=== PATIENT | female | born 1970 | race Caucasian/White ===

== ENCOUNTER 2018-12-04 09:15 | Emergency (ER) | payer MEDICAID ==
[~2018-12-04] VITALS: Ht 154.9 cm; Wt 65.3 kg
[2018-12-04 09:18] VITALS: BP 147/84
--- NOTE | 2018-12-04 09:28 | NUR ---
PATIENT IN BATHROOM TO PROVIDE URINE SAMPLE.
--- NOTE | 2018-12-04 09:35 | NUR ---
C/O DIFFUSED BURNING ABD PAIN 10/07 X5 DAYS ASSOCIATED W/ N/V/D. NOT SURE IF ANY BLOOD IN DIARRHEA. HAS BEEN HAVING DIARRHEA THROUGHOUT THE NIGHT. VOMITTED 2X. NO FEVER. NORMOACTIVE BS. DIFFUSE TENDERNESS TO PALPATION. STATES TAKING OMEPRAZOLE TO NO RELIEF. HX: GERD, GASTRITIS RX: OMEPRAZOLE
--- NOTE | 2018-12-04 10:25 | NUR ---
DR MEHTA AT BEDSIDE
[2018-12-04] MEDS ORDERED: ONDANSETRON 4 MG/2 ML VIAL IM ONE (10:40)
[2018-12-04] MEDS ORDERED: DICYCLOMINE HCL LIQUID 10 MG/5 ML UDC PO ONE (11:10)
[2018-12-04] MEDS ORDERED: LIDOCAINE VISCOUS 2% 20 ML UDC PO ONE (11:10)
[2018-12-04] MEDS ORDERED: PANTOPRAZOLE 40 MG TABEC PO ONE (11:10)
[2018-12-04] MEDS ORDERED: ALUMINUM HYD/MAG/SIMETHICONE 30 ML UDC PO ONE (11:10)
[2018-12-04 12:40] VITALS: BP 136/77
--- NOTE | 2018-12-04 12:40 | NUR ---
Patient discharged with v/s stable. Written and verbal after care instructions given and explained. Patient alert, oriented and verbalized understanding of instructions. Ambulatory with steady gait. All questions addressed prior to discharge. ID band removed. Patient advised to follow up with PMD. Rx of MAALOX AND PROTONIX given. Patient educated on indication of medication including possible reaction and side effects. Opportunity to ask questions provided and answered. SYL BARILLAS TRANSLATED TO MALTESE PT GIVEN EXCUSE FOR WORK
== END 2018-12-04 12:40 | disposition home or self-care (01) ==
LOC: MED 09:15
DX: K29.70 Gastritis, unspecified, without bleeding (principal); R03.0 Elevated blood-pressure reading, without diagnosis of hypertension; K21.9 Gastro-esophageal reflux disease without esophagitis; Z90.49 Acquired absence of other specified parts of digestive tract
CPT/HCPCS: 81025; 96372; 99284; J2405

== ENCOUNTER 2019-07-26 14:54 | Emergency (ER) | payer SELFPAY ==
[~2019-07-26] VITALS: Ht 160 cm; Wt 70.8 kg
[2019-07-26 14:56] VITALS: BP 154/84
--- NOTE | 2019-07-26 15:00 | NUR ---
pt ambulated to chair c. steady gait.
--- NOTE | 2019-07-26 15:18 | NUR ---
49 Y/F PRESENTS TO ED FOR R HAND PAIN/ SWELLING AND R KNEE PAIN/ SWELLING. PT REPORTS PAIN AFTER REPETITIVE MOTIION AT WORK. PAIN HAS BEEN WORSE X 1 WEEK. PT REPROTS 9/10 THROBBING PAIN AND SWELLING. RADIAL PULSES 2+, SWELLING AND LIMITED FLEXION OF FINGERS. R KNEE SWELLING NOTED. LIMITED FLEXION AND EXTENSION. PT REPORTS TAKING TYLENOL AND MOTRIN AND HOME WITH SLIGHT RELIEF. PT DENIES ANY PHYSICAL INJURY. SKIN INTACT, NO BRUISING NOTED. [facility]
--- NOTE | 2019-07-26 15:18 | NUR ---
SHELLEY BACK CHAIRSIDE.
[2019-07-26] MEDS ORDERED: KETOROLAC 30 MG/ML VIAL IM ONE (15:25)
--- NOTE | 2019-07-26 15:43 | NUR ---
PT WHEELED TO XR
--- NOTE | 2019-07-26 16:40 | NUR ---
PA RE-EVALUATING PT CHAIRSIDE.
[2019-07-26 17:00] VITALS: BP 154/84
--- NOTE | 2019-07-26 17:00 | NUR ---
Patient discharged with v/s stable. Written and verbal after care instructions given and explained. Patient alert, oriented and verbalized understanding of instructions. Ambulatory with steady gait. All questions addressed prior to discharge. ID band removed. Patient advised to follow up with PMD. Rx of BOLTAREN AND IBUPROFEN given. Patient educated on indication of medication including possible reaction and side effects. Opportunity to ask questions provided and answered.
== END 2019-07-26 17:00 | disposition home or self-care (01) ==
LOC: MED 14:54
DX: S83.8X1A Sprain of other specified parts of right knee, initial encounter (principal); M79.641 Pain in right hand; W08.XXXA Fall from other furniture, initial encounter; Y93.89 Activity, other specified; Y92.89 Other specified places as the place of occurrence of the external cause; Y99.8 Other external cause status
CPT/HCPCS: 73130; 73560; 96372; 99284; J1885

== ENCOUNTER 2020-06-05 12:31 | Emergency (ER) | payer OTHER ==
[~2020-06-05] VITALS: Ht 157.5 cm; Wt 74.8 kg
[2020-06-05 12:35] VITALS: BP 143/87
[2020-06-05] MEDS ORDERED: ASPIRIN 81 MG TAB.CHEW PO ONE ×2 (13:00→14:45)
[2020-06-05] MEDS ORDERED: NACL 0.9% 1,000 ML IV ONE (13:15)
[2020-06-05] MEDS ORDERED: KETOROLAC 15 MG/ML VIAL IVP ONE (13:15)
[2020-06-05] MEDS ORDERED: METOCLOPRAMIDE 10 MG/2 ML INJ VIAL IVP ONE (13:15)
[2020-06-05 13:28] LABS: BASOPHILS % (AUTO) 0.2 % (0.0-2.0); EOSINOPHILS # (AUTO) 0.1 K/uL (0-0.4); EOSINOPHILS % (AUTO) 1.4 % (0.0-4.0); HEMATOCRIT 39.2 % (36-48); HEMOGLOBIN 13.3 g/dL (12.0-16.0); LYMPHOCYTES # (AUTO) 3.3 K/uL (2.5-16.5); LYMPHOCYTES % (AUTO) 42.7 % (20.5-51.1); MEAN CORPUSCULAR HEMOGLOBIN 31 pg (27-31); MEAN CORPUSCULAR HGB CONC 34 g/dL (33-37); MEAN CORPUSCULAR VOLUME 91.6 fL (80-94); MONOCYTES # (AUTO) 0.4 K/uL (0.8-1.0); MONOCYTES % (AUTO) 5.6 % (1.7-9.3); NEUTROPHILS # (AUTO) 3.8 K/uL (1.8-7.7); NEUTROPHILS % (AUTO) 50.1 % (42.2-75.2); PLATELET COUNT (AUTO) 454 K/uL (140-450); RED BLOOD CELL COUNT(AUTO) 4.28 MIL/uL (4.20-5.40); RED CELL DISTRIBUTION WIDTH 14.1 % (11.6-13.7); WHITE BLOOD COUNT (AUTO) 7.6 K/uL (4.8-10.8)
[2020-06-05 13:41] LABS: ANION GAP 15.2 (8-16); CARBON DIOXIDE 25.1 mmol/L (21-32); CREATININE 0.7 mg/dL (0.6-1.3); POTASSIUM 4.3 mmol/L (3.5-5.1)
[2020-06-05] MEDS ORDERED: NITROGLYCERIN 0.4 MG TAB SL ONE (14:45)
[2020-06-05 15:30] VITALS: BP 143/87
== END 2020-06-05 15:30 | disposition home or self-care (01) ==
LOC: MED 12:31
DX: R07.89 Other chest pain (principal); G43.809 Other migraine, not intractable, without status migrainosus; I10 Essential (primary) hypertension
CPT/HCPCS: 36415; 70450; 71045; 80048; 81025; 83880; 84484; 85025; 96361; 96374; 96375; 99285; J1885; J2765; J7030; 93005

== ENCOUNTER 2021-05-10 00:43 | Emergency (ER) | payer SELFPAY ==
[~2021-05-10] VITALS: Ht 162.6 cm; Wt 66.7 kg
[2021-05-10 00:55] VITALS: BP 121/76
--- NOTE | 2021-05-10 01:05 | NUR ---
PT PLACED IN A WHILE BED 6 OPENS UP. PT IS SITTING IN FRONT OF TRIAGE WHERE I CAN SEE HER.
[2021-05-10 01:35] LABS: EOSINOPHILS # (AUTO) 0.2 K/uL (0-0.4); NEUTROPHILS # (AUTO) 1.9 K/uL (1.8-7.7); NEUTROPHILS % (AUTO) 32.1 % (42.2-75.2); WHITE BLOOD COUNT (AUTO) 5.8 K/uL (4.8-10.8)
[2021-05-10 01:37] LABS: ALBUMIN 3.9 g/dL (3.4-5.0); ANION GAP 9.3 (8-16); ASPARTATE AMINOTRANSFERASE 19 U/L (15-37); CARBON DIOXIDE 26.4 mmol/L (21-32); CHLORIDE 104 mmol/L (98-107); CREATININE 0.7 mg/dL (0.6-1.3); GFR ARICAN-AMERICAN 113 mL/min (>90); GLUCOSE 90 mg/dL (74-106); POTASSIUM 3.7 mmol/L (3.5-5.1); SODIUM SERUM 136 mmol/L (136-145); TOTAL BILIRUBIN 0.4 mg/dL (0.0-1.0); UREA NITROGEN, BLOOD 12 mg/dL (7-18)
[2021-05-10 01:39] LABS: BASOPHILS % (AUTO) 0.2 % (0.0-2.0); HEMATOCRIT 38.4 % (36-48); HEMOGLOBIN 12.7 g/dL (12.0-16.0); LYMPHOCYTES # (AUTO) 3.5 K/uL (2.5-16.5); LYMPHOCYTES % (AUTO) 59.4 % (20.5-51.1); MEAN CORPUSCULAR HEMOGLOBIN 31 pg (27-31); MEAN CORPUSCULAR HGB CONC 33 g/dL (33-37); MEAN CORPUSCULAR VOLUME 92.5 fL (80-94); MONOCYTES # (AUTO) 0.3 K/uL (0.8-1.0); MONOCYTES % (AUTO) 5.3 % (1.7-9.3); PLATELET COUNT (AUTO) 426 K/uL (140-450); RED BLOOD CELL COUNT(AUTO) 4.15 MIL/uL (4.20-5.40); RED CELL DISTRIBUTION WIDTH 13.9 % (11.6-13.7)
--- NOTE | 2021-05-10 01:45 | NUR ---
seen and examined by Ashok with orders and carried out
[2021-05-10 01:48] LABS: ACETAMINOPHEN < 0.5 ug/ml (10-30); SALICYLATE < 2.8 mg/dL (2.8-20.0)
--- NOTE | 2021-05-10 02:30 | NUR ---
Patient appears resting comfortable in bed. Vital Signs within normal limits. Respirations even and unlabored.
[2021-05-10 03:06] LABS: APPEARANCE,URINE CLEAR (CLEAR); BILIRUBIN,URINE NEGATIVE (NEGATIVE); BLOOD, URINE TRACE-L (NEGATIVE); COLOR,URINE YELLOW (YELLOW); LEUKOCYTE ESTERASE ,URINE 2+ (NEGATIVE); NITRITE, URINE NEGATIVE (NEGATIVE); UGLUCOSE NEGATIVE (NEGATIVE)
--- NOTE | 2021-05-10 03:10 | NUR ---
PER ERMD, [place] [facility] [id number]CH
--- NOTE | 2021-05-10 03:24 | NUR ---
FACESHEET FAXED TO [facility] [place] TELEPSYCH
[2021-05-10 03:25] LABS: RBC,URINE 0-5 /HPF (0-5)
[2021-05-10 03:30] LABS: BARBITURATE, URINE NEGATIVE ng/ml (NEG <=200); BENZODIAZEPINE, URINE POSITIVE ng/mL (NEG <=200); CANNABINOID, URINE NEGATIVE ng/mL (NEG <=50); COCAINE, URINE NEGATIVE ng/mL (NEG <=300); OPIATE, URINE NEGATIVE ng/mL (NEG <=2000); PHENCYCLIDINE SCREEN,URINE NEGATIVE ng/mL (NEG <=25)
--- NOTE | 2021-05-10 04:20 | NUR ---
swabs for guy brown sent to lab
[2021-05-10] MEDS ORDERED: ACET-10509 PO (04:36)
--- NOTE | 2021-05-10 06:12 | NUR ---
[facility] CALLED AND ARRANGED TELEPSYCH AT [phone]
--- NOTE | 2021-05-10 06:23 | NUR ---
CLINICALS AND FACESHEET FAXED TO [facility]
--- NOTE | 2021-05-10 06:45 | NUR ---
patient talking to her daughter happily, having a good conversation
--- NOTE | 2021-05-10 07:20 | NUR ---
report given to Alba CARRASCO
--- NOTE | 2021-05-10 07:21 | NUR ---
REPORT RECEIVED FROM LINDA SAUCEDO FOR PATIENT CONTINUITY OF CARE.
--- NOTE | 2021-05-10 07:51 | NUR ---
PROVIDED PATIENT WITH WATER AT BEDSIDE, ALL PATIENT NEEDS MET AT THIS TIME. SAFETY MEASURES CONTINUED IN PLACE, WILL CONTINUE TO MONITOR.
--- NOTE | 2021-05-10 08:20 | NUR ---
DR. Tang EVALUATING PATIENT VIA TELEPSYCH
--- NOTE | 2021-05-10 08:28 | NUR ---
PROVIDED PATIENT WITH BREAKFAST AT BEDSIDE.
[2021-05-10] MEDS ORDERED: NITR100C7 PO (08:32)
[2021-05-10] MEDS ORDERED: MIRT-91 PO ×2 (08:37→08:38)
[2021-05-10] MEDS ORDERED: LORazepam 1 MG TAB PO ONE (08:40)
[2021-05-10 09:14] VITALS: BP 113/69
--- NOTE | 2021-05-10 09:14 | NUR ---
Patient discharged with v/s stable. Written and verbal after care instructions ABOUT UTI, MANAGING LOSS, COMPLICATED GRIEF, SUICIDAL FEELINGS: HOW TO HELP YOURSELF given and explained. Patient alert, oriented and verbalized understanding of instructions. Wheel Chair Assisted with DAUGHTER to car. All questions addressed prior to discharge. ID band removed. Patient advised to follow up with PMD. Rx of MACROBID 100MG AND REMERON given. Patient provided with mental health resource packets and advised to follow up with provided clinic.
--- NOTE | 2021-05-10 09:15 | NUR ---
The patient's care was reviewed and supervised by Gem Reyes RN.
== END 2021-05-10 09:15 | disposition home or self-care (01) ==
LOC: MED 00:43
DX: R45.851 Suicidal ideations (principal); Z20.822 Contact with and (suspected) exposure to COVID-19; N39.0 Urinary tract infection, site not specified; F43.20 Adjustment disorder, unspecified; Z79.899 Other long term (current) drug therapy
CPT/HCPCS: 36415; 80053; 80305; 81001; 84484; 85025; 87086; 87426; 99285; G0480; G0482; U0003

== ENCOUNTER 2021-07-08 08:43 | Emergency (ER) | payer MEDICAID ==
[~2021-07-08] VITALS: Ht 154.9 cm; Wt 64.0 kg
[~2021-07-08 08:43] MED LIST: ACET-10509 PO; MIRT-91 PO; NITR100C7 PO
[2021-07-08 08:45] VITALS: BP 141/80
--- NOTE | 2021-07-08 08:51 | NUR ---
PT AMBULATED TO ER BED 1 WITH A STEADY GAIT.
--- NOTE | 2021-07-08 08:59 | NUR ---
50 Y/O FEMALE C/O RIGHT SHOULDER PAIN RADIATING DOWN TO HER HAND X1DAY. PT REPORTS TAKING TYLENOL WITH NO RELIEF. DENIES RECENT INJURY OR TRAUMA, STATES SHE UNABLE TO STRAIGHTEN HER 3RD DIGIT ON RIGHT HAND. PMH: RA LAMBERT
[2021-07-08] MEDS ORDERED: KETOROLAC 30 MG/ML VIAL IM ONE (09:30)
--- NOTE | 2021-07-08 09:32 | NUR ---
DR. MISHRA AT PT BEDSIDE FOR FURTHER EVALUATION.
--- NOTE | 2021-07-08 09:35 | NUR ---
HOGSHEAD LINER AT PT BEDSIDE.
--- NOTE | 2021-07-08 09:40 | NUR ---
PT TAKEN TO CT VIA W/C.
--- NOTE | 2021-07-08 09:49 | NUR ---
PT TAKEN TO ER BED [address] VIA W/C.
[2021-07-08] MEDS ORDERED: IBUP-2213 PO (11:11)
[2021-07-08] MEDS ORDERED: GABA100C PO (11:11)
[2021-07-08] MEDS ORDERED: LID5T TP (11:11)
[2021-07-08] MEDS ORDERED: GABAPENTIN 300 MG CAP PO ONE (11:30)
--- NOTE | 2021-07-08 11:33 | NUR ---
PT STATES SHE HAS PAIN 8/10 TO RIGHT SHOULDER PAIN, ERMD MADE AWARE.
--- NOTE | 2021-07-08 12:05 | NUR ---
DR. MISHRA AT PT BEDSIDE FOR RE-EVALUATION.
--- NOTE | 2021-07-08 12:13 | NUR ---
SHEETFED PRESS OPERATOR AT PT BEDSIDE.
--- NOTE | 2021-07-08 12:23 | NUR ---
SIXTO SWAB SENT TO LAB
[2021-07-08 12:31] LABS: BASOPHILS % (AUTO) 0.1 % (0.0-2.0); EOSINOPHILS # (AUTO) 0.1 K/uL (0-0.4); EOSINOPHILS % (AUTO) 0.8 % (0.0-4.0); HEMATOCRIT 37.5 % (36-48); HEMOGLOBIN 12.6 g/dL (12.0-16.0); LYMPHOCYTES % (AUTO) 42.1 % (20.5-51.1); MEAN CORPUSCULAR HEMOGLOBIN 31 pg (27-31); MEAN CORPUSCULAR HGB CONC 34 g/dL (33-37); MONOCYTES # (AUTO) 0.4 K/uL (0.8-1.0); MONOCYTES % (AUTO) 6.3 % (1.7-9.3); NEUTROPHILS # (AUTO) 3.6 K/uL (1.8-7.7); NEUTROPHILS % (AUTO) 50.7 % (42.2-75.2); PLATELET COUNT (AUTO) 402 K/uL (140-450); RED BLOOD CELL COUNT(AUTO) 4.12 MIL/uL (4.20-5.40); RED CELL DISTRIBUTION WIDTH 13.7 % (11.6-13.7); WHITE BLOOD COUNT (AUTO) 7.1 K/uL (4.8-10.8)
[2021-07-08 12:48] LABS: ALBUMIN 4.2 g/dL (3.4-5.0); ANION GAP 12.1 (8-16); CARBON DIOXIDE 26.4 mmol/L (21-32); CREATININE 0.7 mg/dL (0.6-1.3); POTASSIUM 3.5 mmol/L (3.5-5.1); TOTAL BILIRUBIN 0.4 mg/dL (0.0-1.0)
--- NOTE | 2021-07-08 13:11 | NUR ---
PT AMBULATED TO RESTROOM WITH A STEADY GAIT.
--- NOTE | 2021-07-08 13:15 | NUR ---
PT AMBULATED ER BED 1 WITH A STEADY GAIT FROM RESTROOM.
[2021-07-08] MEDS ORDERED: MORPHINE SULFATE 4 MG/ML SYR IVP ONE (14:00)
--- NOTE | 2021-07-08 14:20 | NUR ---
TRANSFER CONSENT SIGNED, PLACED IN PT CHART.
--- NOTE | 2021-07-08 14:40 | NUR ---
GAVE REPORT TO LINDA PETERSON IN [place] FOR PENDING TRANSFER. ETA 30MINUTES.
[2021-07-08] MEDS ORDERED: FAMOTIDINE 20 MG TAB PO ONE (16:00)
[2021-07-08 16:19] VITALS: BP 150/72
--- NOTE | 2021-07-08 16:21 | NUR ---
Patient to be transferred to [facility]. Is being transferred due to HIGHER LEVEL OF CARE. Receiving facility has accepting physician and available space. ER physician has signed transfer form. Patient or responsible democrat has agreed to transfer and signed form. Patient belongings inventoried and will be sent with patient. Copy of nursing notes, lab reports, EKG, Physicians Orders and X-rays to be sent with patient. Report called to LINDA PETERSON at receiving facility. [facility] been called for transfer. ETA is 10.
== END 2021-07-08 16:19 | disposition short-term general hospital (02) ==
LOC: MED 08:43
DX: M54.13 Radiculopathy, cervicothoracic region (principal); Z20.822 Contact with and (suspected) exposure to COVID-19; M85.68 Other cyst of bone, other site; R53.1 Weakness; Z79.899 Other long term (current) drug therapy
CPT/HCPCS: 36415; 70490; 73140; 80053; 85025; 85651; 86140; 87426; 96372; 96374; 99285; J1885; J2270; 26770

== ENCOUNTER 2021-11-08 09:20 | Emergency (ER) | payer MEDICAID, OTHER ==
[~2021-11-08] VITALS: Ht 154.9 cm; Wt 62.6 kg
[~2021-11-08 09:20] MED LIST changes: +GABA100C PO; +IBUP-2213 PO; +LID5T TP
[2021-11-08 09:32] VITALS: BP 147/86
--- NOTE | 2021-11-08 09:32 | NUR ---
PT AMBULATED TO BED 3 WITH STEADY GAIT
--- NOTE | 2021-11-08 09:38 | NUR ---
DR JORGE AT BEDSIDE FOR EVAL
--- NOTE | 2021-11-08 09:38 | NUR ---
51 Y/O FEMALE BIB SELF C/O ABD PAIN EPIGASTRIC RADIATING TO LEFT UPPER BACK X2DAYS, BURNING PAIN, NAUSEA AND VOMITING, DENIES DIARRHEA, DENIES BLOOD IN STOOL OR VOMITUS. TOOK TYLENOL FOR PAIN WITH MINIMAL EFFECT. DENIES MEDICATION FOR VOMITING NKA PMH: DENIES
[2021-11-08] MEDS ORDERED: DICYCLOMINE HCL LIQUID 20 MG, ALUMINUM HYD/MAG/SIMETHICONE 30 ML, LIDOCAINE VISCOUS 2% ... PO ONE ×3 (09:40)
[2021-11-08] MEDS ORDERED: NACL 0.9% 1,000 ML IV ONE (09:40)
[2021-11-08] MEDS ORDERED: ONDANSETRON 4 MG/2 ML VIAL IVP ONE (09:40)
[2021-11-08] MEDS ORDERED: KETOROLAC 30 MG/ML VIAL IVP ONE (09:40)
[2021-11-08] MEDS ORDERED: DICYCLOMINE HCL LIQUID 10 MG/5 ML UDC ONE (10:02)
[2021-11-08] MEDS ORDERED: ALUMINUM HYD/MAG/SIMETHICONE 30 ML UDC ONE (10:02)
[2021-11-08 10:07] LABS: BASOPHILS % (AUTO) 0.3 % (0.0-2.0); EOSINOPHILS # (AUTO) 0.1 K/uL (0-0.4); EOSINOPHILS % (AUTO) 2.8 % (0.0-4.0); HEMATOCRIT 37.4 % (36-48); HEMOGLOBIN 12.8 g/dL (12.0-16.0); LYMPHOCYTES # (AUTO) 2.4 K/uL (2.5-16.5); LYMPHOCYTES % (AUTO) 53.1 % (20.5-51.1); MEAN CORPUSCULAR HEMOGLOBIN 31 pg (27-31); MEAN CORPUSCULAR HGB CONC 34 g/dL (33-37); MONOCYTES # (AUTO) 0.3 K/uL (0.8-1.0); MONOCYTES % (AUTO) 7.1 % (1.7-9.3); NEUTROPHILS # (AUTO) 1.6 K/uL (1.8-7.7); NEUTROPHILS % (AUTO) 36.7 % (42.2-75.2); PLATELET COUNT (AUTO) 405 K/uL (140-450); RED BLOOD CELL COUNT(AUTO) 4.16 MIL/uL (4.20-5.40); RED CELL DISTRIBUTION WIDTH 13.6 % (11.6-13.7); WHITE BLOOD COUNT (AUTO) 4.5 K/uL (4.8-10.8)
[2021-11-08 10:24] LABS: ALBUMIN 3.9 g/dL (3.4-5.0); ANION GAP 16.4 (8-16); CARBON DIOXIDE 23.3 mmol/L (21-32); CREATININE 0.8 mg/dL (0.6-1.3); POTASSIUM 3.7 mmol/L (3.5-5.1); TOTAL BILIRUBIN 0.5 mg/dL (0.0-1.0)
[2021-11-08] MEDS ORDERED: ACETAMINOPHEN 325 MG TAB PO ONE (10:50)
[2021-11-08] MEDS ORDERED: SIME125T38 PO (11:05)
[2021-11-08] MEDS ORDERED: FAMO-92 PO (11:05)
[2021-11-08] MEDS ORDERED: ONDA-188 PO (11:05)
[2021-11-08] MEDS ORDERED: ACET-10509 PO (11:05)
[2021-11-08 11:29] VITALS: BP 120/80
--- NOTE | 2021-11-08 11:29 | NUR ---
Patient discharged with v/s stable. Written and verbal after care instructions given and explained. Patient alert, oriented and verbalized understanding of instructions. Ambulatory with steady gait. All questions addressed prior to discharge. ID band removed. Patient advised to follow up with PMD. Rx of TYLENOL EXTRA STRENGTH, PEPCID, ZOFRAN ODT, [place] G[place] given. Patient educated on indication of medication including possible reaction and side effects. Opportunity to ask questions provided and answered.
== END 2021-11-08 11:29 | disposition home or self-care (01) ==
LOC: MED 09:20
DX: K29.70 Gastritis, unspecified, without bleeding (principal); Z90.49 Acquired absence of other specified parts of digestive tract
CPT/HCPCS: 36415; 80053; 84702; 85025; 96361; 96374; 96375; 99284; J1885; J2405; J7030